=== PATIENT | male | born 1965 | race African-American/Black ===

== ENCOUNTER 2021-12-18 01:19 | Emergency (ER) | payer OTHER, SELFPAY ==
[2021-12-18] MEDS ORDERED: Boostrix 0.5 ML (Tdap) VIAL ONE (01:40)
[2021-12-18] MEDS ORDERED: Lidocaine 1% w/Epinephrine 1:100K 20 ML VIAL ONE (01:40)
[2021-12-18] MEDS ORDERED: Bacitracin 1 PK ONE (02:18)
== END 2021-12-18 02:36 | disposition home or self-care (01) ==
LOC: BURERS 01:19
DX: S01.81XA Laceration without foreign body of other part of head, initial encounter (principal); F17.200 Nicotine dependence, unspecified, uncomplicated; W19.XXXA Unspecified fall, initial encounter
CPT/HCPCS: 12014; 90471; 90715

== ENCOUNTER 2021-12-25 11:14 | Emergency (ER) | payer SELFPAY | END 2021-12-25 12:29 | disposition home or self-care (01) | LOC: BURERS 11:14 | DX: S01.81XD Laceration without foreign body of other part of head, subsequent encounter (principal); W01.0XXD Fall on same level from slipping, tripping and stumbling without subsequent striking against object, subsequent encounter; F17.200 Nicotine dependence, unspecified, uncomplicated ==